=== PATIENT | male | born 1975 | race Two or more races ===

== ENCOUNTER 2023-11-20 14:24 | Inpatient (IN) | payer OTHER ==
[2023-11-20 15:30] VITALS: BMI 35.1
[2023-11-20] MEDS ORDERED: POLYETHYLENE GLYCOL (HEALTHYLAX) 3350 17 GM PACKET PO PRN (20:47)
[2023-11-20] MEDS ORDERED: NALOXONE HCL 0.4 MG/ML VIAL IM PRN (20:47)
[2023-11-20] MEDS ORDERED: IBUPROFEN 400 MG TABLET (FP) PO PRN (20:47)
[2023-11-20] MEDS ORDERED: BISACODYL 5 MG TABLET.DR (FP) PO PRN (20:47)
[2023-11-20] MEDS ORDERED: NALOXONE HCL (KLOXXADO) 8 MG SPRAY NS PRN (20:47)
[2023-11-20] MEDS ORDERED: BENZONATATE 200 MG CAPSULE PO PRN (20:47)
[2023-11-20] MEDS ORDERED: hydrOXYzine PAMOATE 25 MG CAPSULE (FP) PO PRN (20:47)
[2023-11-20] MEDS ORDERED: DOCUSATE SODIUM 100 MG CAPSULE (FP) PO PRN (20:47)
[2023-11-20] MEDS ORDERED: guaiFENesin 600 MG TABLET.ER (FP) PO PRN (20:47)
[2023-11-20] MEDS ORDERED: MAGNESIUM HYDROX 2400MG/30ML ORAL SUSPENSION 30 ML CUP PO PRN (20:47)
[2023-11-20] MEDS ORDERED: P-EPHED 60MG/TRIPROLIDI 2.5MG TABLET PO PRN (20:47)
[2023-11-20] MEDS: MELATONIN 5 MG TABLETS PO SCH (23:04)
[2023-11-20] MEDS: GABAPENTIN 100 MG CAPSULE PO ONE (23:04)
[2023-11-20] MEDS: THIAMINE HCL 100 MG TABLET (FP) PO SCH (23:04)
[2023-11-21] MEDS: methaDONE HCL 40 MG DISPERSABLE TABLET PO SCH (09:31)
[2023-11-21] MEDS: PRENATAL VITAMINS W/ FOLIC ACID TABLET (FP) PO SCH (09:32)
[2023-11-21] MEDS: amLODIPine BESYLATE 5 MG TABLET (FP) PO SCH (09:32)
[2023-11-21] MEDS: FOLIC ACID 1 MG TABLET (FP) PO SCH (09:32)
[2023-11-21] MEDS: LOPERAMIDE HCL 2 MG CAPSULE PO PRN (09:32)
[2023-11-21] MEDS: NICOTINE 14 MG/24 HOURS TOPICAL PATCH TD SCH (09:34)
[2023-11-21 12:46] LABS: HEMATOCRIT 42.8 % (35.4-49); HEMOGLOBIN 14.3 GM/dL (11.7-16.9); MCH 30.6 pg (25.7-33.7); MCHC 33.3 g/dl (32.0-35.9); MEAN CELL VOLUME 91.7 fl (80-96); MEAN PLT VOLUME 8.7 fl (7.5-11.1); PLATELET COUNT 242 10^3/uL (134-434); RBC 4.67 M/mm3 (4.00-5.60); WHITE BLOOD COUNT 4.5 K/mm3 (4.0-10.0)
[2023-11-21 13:31] LABS: POTASSIUM 3.5 mmol/L (3.5-5.1)
[2023-11-21 13:41] LABS: ALBUMIN 3.6 g/dl (3.4-5.0); BLOOD UREA NITROGEN 10.8 mg/dL (7-18); CALCIUM 9.1 mg/dL (8.5-10.1); CREATININE 0.9 mg/dL (0.55-1.3)
[2023-11-21 13:42] LABS: BILIRUBIN,TOTAL 0.3 mg/dL (0.2-1); TOT PROT 7.3 g/dl (6.4-8.2)
[2023-11-21 16:00] LABS: PH,URINE 6.5 (5.0-8.0); URINE APPEARANCE CLEAR; URINE BILIRUBIN NEGATIVE (NEGATIVE); URINE COLOR YELLOW; URINE GLUCOSE (UA) NEGATIVE (NEGATIVE); URINE KETONE NEGATIVE (NEGATIVE); URINE LEUK ESTERASE NEGATIVE (NEGATIVE); URINE NITRITE NEGATIVE (NEGATIVE); URINE PROTEIN NEGATIVE (NEGATIVE); URINE UROBILINOGEN 0.2 mg/dL (0.2-1.0)
[2023-11-21] MEDS: MAG HYDROX/AL HYDROX/SIMETH 30 ML UNIT-DOSE CUP PO PRN (19:19)
[2023-11-21] MEDS: MIRTAZAPINE 15 MG TABLET (FP) PO SCH (21:11)
[2023-11-21] MEDS: GABAPENTIN 300 MG CAPSULE PO SCH (21:11)
[2023-11-21] MEDS: BENZOCAINE/MENTHOL (CHLORASEPTIC ) LOZENGE MM PRN (21:44)
[2023-11-22] MEDS: NICOTINE POLACRILEX 2 MG LOZENGE BC PRN (06:00)
[2023-11-22] MEDS: NICOTINE 21 MG/24 HOURS TOPICAL PATCH TD SCH (09:53)
[2023-11-24] MEDS: amLODIPine BESYLATE 10 MG TABLET (FP) PO SCH (15:05)
[2023-11-24] MEDS: BACITRACIN 0.9 GM PACKET TP SCH (21:29)
[2023-11-24] MEDS: BACLOFEN 10 MG TABLET (FP) PO SCH (21:29)
[2023-11-25] MEDS: amLODIPine BESYLATE 10 MG TABLET (FP) PO SCH (09:39)
[2023-11-25] MEDS: ACETAMINOPHEN 325 MG TABLET (FP) PO PRN (12:09)
[2023-11-25] MEDS: IBUPROFEN 600 MG TABLET (FP) PO PRN (19:09)
[2023-11-27 06:17] VITALS: TEMP 97.5
[2023-11-27 09:15] VITALS: BP 114/69; PULSE 89; RESP 16
[2023-11-27] MEDS: DOXYCYCLINE HYCLATE 100 MG TABLET PO SCH (10:31)
== END 2023-11-27 15:54 | disposition left against medical advice (07) | DRG 770 ==
LOC: YASAS 14:24 → Y3NR 22:39 → Y3W 11-21 11:40
PROVIDERS: ADMIT Allergy & Immunology; ATTEND Psychiatry & Neurology Pain Medicine
PROC: HZ42ZZZ Group Counseling for Substance Abuse Treatment, Cognitive-Behavioral (ICD-10-PCS; principal; 2023-11-20)
DX: F11.20 Opioid dependence, uncomplicated (principal); F14.20 Cocaine dependence, uncomplicated; F12.20 Cannabis dependence, uncomplicated; F17.210 Nicotine dependence, cigarettes, uncomplicated; F41.9 Anxiety disorder, unspecified; G47.00 Insomnia, unspecified; I10 Essential (primary) hypertension; I83.893 Varicose veins of bilateral lower extremities with other complications; L98.8 Other specified disorders of the skin and subcutaneous tissue; Z86.11 Personal history of tuberculosis
CPT/HCPCS: 36415; 71046-TC-FY; 80053; 80305; 81003; 85027; 86780; 87635; 93005; 93010; J0475